=== PATIENT | female | born 1965 | race Two or more races ===

== ENCOUNTER 2019-04-03 14:39 | Emergency (ER) | payer OTHER ==
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
[2019-04-03] MEDS ORDERED: Sodium Chloride 0.9% 1,000 ML IV SCH (15:30)
[2019-04-03] MEDS ORDERED: Morphine 4 MG/ML Syringe IVPUSH ONE (15:44)
--- NOTE | 2019-04-03 17:13 | CRLCT ---
INDICATION: Trauma. TECHNIQUE: Noncontrast axial images. COMPARISON: None. FINDINGS: No abnormal intracranial mass effect or midline shift. No intracranial hemorrhage. No abnormal areas of attenuation within the brain. CSF spaces are age-appropriate. Incidental cavum septum pellucidum. No acute osseous abnormality. Visualized paranasal sinuses and mastoids are clear. IMPRESSION: No CT evidence of an acute intracranial abnormality. Dictated by Sander Mae MD @ 04/03/2019 5:12:28 PM Please note that all CT scans at this facility use dose modulation, iterative reconstruction, and/or weight-based dosing when appropriate to reduce radiation dose to as low as reasonably achievable. Dictated by: Sander Mae MD @ 04/03/2019 17:12:34 (Electronically Signed)
--- NOTE | 2019-04-03 17:18 | CRLCT ---
INDICATION: Trauma. TECHNIQUE: Noncontrast axial images through the facial bones. Coronal and sagittal reconstructions. COMPARISON: CT head from today. FINDINGS: No facial bone fracture. Mild periorbital soft tissue swelling/hematoma on the left. Intraorbital contents appear unremarkable other than a thin orbital lens on the right, presumably related to cataract surgery. Paranasal sinuses are clear. IMPRESSION: No facial bone fracture. Dictated by Sander Mae MD @ 04/03/2019 5:15:36 PM Please note that all CT scans at this facility use dose modulation, iterative reconstruction, and/or weight-based dosing when appropriate to reduce radiation dose to as low as reasonably achievable. Dictated by: Sander Mae MD @ 04/03/2019 17:16:29 (Electronically Signed)
--- NOTE | 2019-04-03 17:20 | CRLCR ---
INDICATION: Left shoulder trauma. TECHNIQUE: Four views. FINDINGS: There is no radiographic evidence of fracture/dislocation/acute bone or joint abnormality. Cortical contour and bony alignment are well maintained. Metallic fusion plate lower cervical spine is incompletely visualized. Visualized left ribs appear intact. IMPRESSION: No acute fracture/dislocation. No significant chronic change identified radiographically. Dictated by Tavares Kincaid MD @ Apr 03 2019 5:16PM Signed by Dr. Tavares Kincaid @ Apr 03 2019 5:19PM
--- NOTE | 2019-04-03 17:24 | CRLCT ---
INDICATION: Trauma. TECHNIQUE: Noncontrast axial images with sagittal and coronal reconstructions. COMPARISON: None. FINDINGS: No prevertebral soft tissue swelling. Straightening of the normal lordotic cervical spine curvature. No vertebral body malalignment or facet joint subluxation or dislocation. No cervical spine fracture. Postsurgical changes are seen from a presumed C4 corpectomy with strut graft placement, and discectomies at the C3-4 through C5-6 levels with anterior hardware fusion. There is non fusion of the intervertebral graft at the C5-6 level and the C6 vertebral body, as indicated by a persistent lucency between the graft and the superior aspect of the C6 vertebral body. There is also mild associated subsidence of the interbody graft at this level. No hardware complication is seen. There is evidence of moderate to advanced disc degeneration at the C6-7 level, with complete collapse of the disc space, endplate and uncovertebral degenerative spurring. Facet joints are unremarkable. IMPRESSION: 1. No cervical spine fracture or traumatic malalignment. 2. Postsurgical changes involving the cervical spine as described above. 3. C6-7 disc degeneration. Dictated by Sander Mae MD @ 04/03/2019 5:23:37 PM Please note that all CT scans at this facility use dose modulation, iterative reconstruction, and/or weight-based dosing when appropriate to reduce radiation dose to as low as reasonably achievable. Dictated by: Sander Mae MD @ 04/03/2019 17:23:44 (Electronically Signed)
== END 2019-04-03 18:20 | disposition home or self-care (01) ==
LOC: JP.ED 14:39
DX: S01.112A Laceration without foreign body of left eyelid and periocular area, initial encounter (principal); I10 Essential (primary) hypertension; F41.9 Anxiety disorder, unspecified; F32.9 Major depressive disorder, single episode, unspecified; Z79.899 Other long term (current) drug therapy; Z98.890 Other specified postprocedural states; V18.0XXA Pedal cycle driver injured in noncollision transport accident in nontraffic accident, initial encounter
CPT/HCPCS: 12011; 36415; 70450; 70486; 72125; 73030; 80048; 85025; 85610; 96374; 99284; J2270; J7030